=== PATIENT | female | born 1960 | race Caucasian/White ===

== ENCOUNTER 2017-02-19 09:00 | Outpatient (RCR) | payer OTHER | END 2017-02-28 | LOC: PT 09:00 | PROVIDERS: ATTEND Specialist | DX: M54.16 Radiculopathy, lumbar region (principal); M54.5 Low back pain; M25.562 Pain in left knee; M25.662 Stiffness of left knee, not elsewhere classified; R26.2 Difficulty in walking, not elsewhere classified; M62.81 Muscle weakness (generalized) | CPT/HCPCS: 97110 ×9; 97140; 97162; G8981; G8982 ==

== ENCOUNTER 2017-03-22 08:48 | Outpatient (RCR) | payer OTHER | END 2017-03-31 | LOC: PT 08:48 | PROVIDERS: ATTEND Specialist | DX: M25.562 Pain in left knee (principal); M25.662 Stiffness of left knee, not elsewhere classified; R26.2 Difficulty in walking, not elsewhere classified; M54.5 Low back pain; M54.16 Radiculopathy, lumbar region; M62.81 Muscle weakness (generalized) | CPT/HCPCS: 97110 ×9; G8981; G8982 ==

== ENCOUNTER 2017-04-09 08:00 | Outpatient (RCR) | payer OTHER | END 2017-04-28 | LOC: PT 08:00 | PROVIDERS: ATTEND Specialist | DX: M54.16 Radiculopathy, lumbar region (principal); M25.562 Pain in left knee; M62.81 Muscle weakness (generalized); R26.2 Difficulty in walking, not elsewhere classified | CPT/HCPCS: 97110 ×3; 97139; G8981; G8982 ==

== ENCOUNTER 2017-05-25 07:00 | Outpatient (RCR) | payer OTHER | END 2017-05-29 | LOC: PT 07:00 | PROVIDERS: ATTEND Specialist | DX: M54.16 Radiculopathy, lumbar region (principal); M54.5 Low back pain; M25.562 Pain in left knee; M25.662 Stiffness of left knee, not elsewhere classified; M62.81 Muscle weakness (generalized); R26.2 Difficulty in walking, not elsewhere classified | CPT/HCPCS: 97110 ×6; 97162; G8981; G8982 ==